=== PATIENT | male | born 1970 | race Caucasian/White ===

== ENCOUNTER 2024-11-04 22:20 | Emergency (ER) | payer MEDICAID, SELFPAY ==
[2024-11-04 22:20] VITALS: BP 194/97; PULSE 80; RESP 18; TEMP 36.6; O2SAT 97; BMI 30.5
--- NOTE | 2024-11-04 22:30 | ED_ITS ---
HPI - Alcohol 2 General: Chief Complaint: Alcohol Stated Complaint: ETOH Time Seen by Provider: 11/04/24 22:25 History of Present Illness: 54-year-old man who presents the emergen cy room by ambulance with a history of schizophrenia who says that he has been drinking all day and he has a ringing in his ears and that his schizophrenia is causing him issues and he needs to be admitted to the [facility]. He continually denies any suicidal or homicidal ideations. He just says that his schizophrenia is hurting him and that he needs to be admitted to be treated Related Data Home Medications ?Medication ?Instructions ?Recorded ?Confirmed omeprazole 20 mg capsule,delayed 20 mg PO DAILY 01/17/21 release sertraline 50 mg tablet (Zoloft) 50 mg PO DAILY 01/17/21 Previous Rx's ?Medication ?Instructions ?Recorded doxycycline hyclate 100 mg tablet 100 mg PO BID 10 day s #20 tabs 01/17/21 Allergies Allergy/AdvReac Type Severity Reaction Status Date / Time Penicillins Allergy rash Verified 11/04/24 22:25 Review of Systems 2 Narrative: Constitutional symptoms: Negative except as documented in HPI. Skin symptoms: Negative except as documented in HPI. Eye symptoms: Negative except as documented in HPI. ENMT symptoms: Negative except as documented in HPI. Respiratory symptoms: Negative except as documented in HPI. Cardiovascular symptoms: Negative except as documented in HPI. Gastrointestinal symptoms: Negative except as documented in HPI. Genitourinary symptoms: Negative except as documented in HPI. Musculoskeletal symptoms: Negative except as documented in HPI. Neurologic symptoms: Negative except as documented in HPI. Psychiatric symptoms: Negative except as documented in HPI. Endocrine symptoms: Negative except as documented in HPI. PFSH ED 2 PFSH: Social History Smoking and tobacco/nicotine status: never used tobacco/nicotine Alcohol intake: never Substance/Drug Use: never Physical Exam 2 Narrative: EXAM NARRATIVE: General: Alert, no acute distress. Skin: Warm, dry. Head: Normocephalic, atraumatic. Neck: Supple, trachea midline. Eye: Extraocular movements are intact. Ears, nose, mouth and throat: mucosa moist. Cardiovascular: Regular, Normal peripheral perfusion. Respiratory: Lungs are clear to auscultation, respirations are non-labored, breath sounds are equal, Symmetrical chest wall expansion. Gastrointestinal: Soft, Nontender, Non distended Musculoskeletal: Normal ROM, no deformity. Neurological: Alert and oriented, No focal neurological deficit observed. Psychiatric: Cooperative, odd affect. Continues to deny suicidal or homicidal ideations. Course 2 Vital Signs: Vital signs: Vital Signs Temperature 97.8 F 11/04/24 22:20 Pulse Rate 75 11/05/24 04:00 Respiratory Rate 16 11/05/24 04:00 Blood Pressure 194/97 11/04/24 22:20 Pulse Oximetry 97 11/05/24 04:00 Oxygen Delivery Me thod Room Air 11/04/24 22:20 MDM - Alcohol Medical Decision Making Lab review: Patient has blood alcohol level of over 300. Repeat is down to 100. Continues to deny any suicidal or homicidal ideation Assessment and plan: Alcohol intoxication Schizophrenia - Discharged home - Discussed plan with patient. Answered any questions. - Evaluation and treatment of this problem were appropriate in the emergency setting. Lab Data 11/04/24 23:07 11/04/24 23:07 Laboratory Results WBC 13.34 10^3/uL (3.29-11.43) H 11/04/24 23:07 RBC 5.52 10^6/uL (3.85-5.65) 11/04/24 23:07 Hgb 16.00 g/dL (11.27-16.99) 11/04/24 23:07 Hct 46.6 % (37-53) 11/04/24 23:07 MCV 84.4 fl (82-101) 11/04/24 23:07 MCH 29.0 pg (27-33) 11/04/24 23:07 MCHC 34.3 g/dL (30-55) 11/04/24 23:07 RDW 13.0 % (12.1-15.1) 11/04/24 23:07 Plt Count 285 10^3/cmm (157-399) 11/04/24 23:07 MPV 9.3 fL (7.4-10.4) 11/04/24 23:07 Neut % (Auto) 49.0 % 11/04/24 23:07 Lymph % (Auto) 41.6 % 11/04/24 23:07 Morrill % (Auto) 6.7 % 11/04/24 23:07 Eos % (Auto) 1.7 % 11/04/24 23:07 Baso % (Auto) 0.6 % 11/04/24 23:07 Neut # (Auto) 6.53 10^3/uL (1.8-7.7) 11/04/24 23:07 Lymph # (Auto) 5.6 10^3/uL (0.8-4.8) H 11/04/24 23:07 Morrill # (Auto) 0.9 10^3/uL (0.2-0.9) 11/04/24 23:07 Eos # (Auto) 0.2 10^3/uL (0.0-0.8) 11/04/24 23:07 Baso # (Auto) 0.1 10^3/uL (0.0-0.1) 11/04/24 23:07 Nucleated RBC % (auto) 0 % 11/04/24 23:07 Nucleated RBCs # 0.0 /100WBC 11/04/24 23:07 Sodium 142 mmol/L (136-145) 11/04/24 23:07 Potassium 4.0 mmol/L (3.5-5.1) 11/04/24 23:07 Chloride 107 mmol/L (98-107) 11/04/24 23:07 Carbon Dioxide 22 mmol/L (22-29) 11/04/24 23:07 Anion Gap 17.0 (5-19) 11/04/24 23:07 BUN 15 mg/dL (6-20) 11/04/24 23:07 Creatinine 1.0 mg/dL (0.7-1.2) 11/04/24 23:07 GFR Calculation 78.2 mL/min (90-130) L 11/04/24 23:07 Glucose 95 mg/dL (65-115) 11/04/24 23:07 Calculated Osmolality 295 mOsm/kg (285-295) 11/04/24 23:07 Calcium 8.7 mg/dL (8.5-10.5) 11/04/24 23:07 Total Bilirubin 0.4 mg/dL (0.15-1.2) 11/04/24 23:07 AST 28 U/L (0-40) 11/04/24 23:07 ALT 21 U/L (0-41) 11/04/24 23:07 Alkaline Phosphatase 73 U/L (40-130) 11/04/24 23:07 Total Protein 8.2 g/dL (6.6-8.7) 11/04/24 23:07 Albumin 4.8 g/dL (3.5-5.2) 11/04/24 23:07 Globulin 3.4 g/dL (1.3-4.6) 11/04/24 23:07 TSH 1.67 uIU/mL (0.27-4.20) 11/04/24 23:07 Salicylates < 0.3 mg/dL (3-10) L 11/04/24 23:07 Acetaminophen < 5.0 ug/mL (10-30) L 11/04/24 23:07 Ethyl Alcohol 108 mg/dL (0-10) H 11/05/24 04:29 No radiology studies performed this visit Discharge Plan Discharge Patient Disposition: Home Clinical Impression: Alcoholic intoxication, Schizophrenia Condition: Stable Prescriptions: No Action sertraline [Zoloft] 50 mg tablet 50 mg PO DAILY omeprazole 20 mg capsule,delayed release(DR/EC) 20 mg PO DAILY doxycycline hyclate 100 mg tablet 100 mg PO BID 10 Days Qty: 20 0RF Discharge Orders: Discharge ED (Routine); Ordered 11/05/24 Ordered By: Yaquelin Carlson Referrals: Reinaldo Hickey MD [Physician] - Patient Instructions: Alcohol Intoxication (ED), Opioid Safety, Pain Management Activity Restrictions/Additional Instructions: Please follow-up with the [facility] behavioral health crisis center tomorrow or the next day. Phone number is [phone]. There is a 24-hour crisis hotline with the number of [phone]. Hours of operation are 8 AM to 6 PM. Thank you for choosing [facility] for your healthcare needs today. Please realize this is an emergency room and that we are providing you with a medical screening exam and this may not be complete and all inclusive of all the testing and or work up that you may need to determine your ailment or severity of your illness. You have been screened and evaluated and felt safe for discharge. Health conditions do change or evolve sometimes and as such it is important that you follow up with your Primary Doctor to be re checked, 3-5 days is a general good time frame for follow up. 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
[2024-11-04] MEDS: ziprasidone 20 mg/mL SDV IM (22:34)
[2024-11-04] MEDS: water for injection-sterile 10 ML (22:43)
--- NOTE | 2024-11-04 23:05 | ECG_ITS ---
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 Measurements Intervals [place] Rate: 86 P: 34 ID: [id number] QRS: -23 QRSD: 110 T: -3 QT: 381 QTc: 458 Interpretive Statements SINUS RHYTHM BORDERLINE LEFT AXIS DEVIATION [QRS AXIS < -20] LOW QRS VOLTAGE IN PRECORDIAL LEADS [QRS DEFLECTION < 1.0 mV IN CHEST LEADS] INCOMPLETE RIGHT BUNDLE BRANCH BLOCK [90+ ms QRS DURATION, TERMINAL R IN V1/V2, 40+ ms S IN I/aVL/V4/V5/V6] NONSPECIFIC T-WAVE ABNORMALITY Compared to ECG 02/23/2016 14:24:41 Low QRS voltage now present T-wave abnormality now present Sinus tachycardia no longer present ST (T wave) deviation no longer present Electronically Signed On 11-06-2024 12:38:25 CDT by Brant Hale M.D. [email or web address]
[2024-11-04 23:54] LABS: Alanine Aminotransferase 21 U/L (0-41); Albumin Level 4.8 g/dL (3.5-5.2); Alkaline Phosphatase 73 U/L (40-130); Aspartate Amino Transferase 28 U/L (0-40); Blood Urea Nitrogen 15 mg/dL (6-20); Calcium 8.7 mg/dL (8.5-10.5); Carbon Dioxide 22 mmol/L (22-29); Chloride 107 mmol/L (98-107); Creatinine Clr Calc Pharmacy 102.6054; Globulin 3.4 g/dL (1.3-4.6); Glomerular Filtration Rate 78.2 mL/min (90-130); Glucose 95 mg/dL (65-115); Osmolality Calculated 295 mOsm/kg (285-295); Sodium 142 mmol/L (136-145); Thyroid Stimulating Hormone 1.67 uIU/mL (0.27-4.20); Total Bilirubin 0.4 mg/dL (0.15-1.2); Total Protein 8.2 g/dL (6.6-8.7)
[2024-11-04 23:55] VITALS: PULSE 79; RESP 15; O2SAT 98
[2024-11-04 23:58] LABS: Acetaminophen < 5.0 ug/mL (10-30); Salicylate < 0.3 mg/dL (3-10)
[2024-11-04 23:59] LABS: Alcohol Level 336 mg/dL (0-10)
[2024-11-05 00:05] LABS: Basophils # 0.1 10^3/uL (0.0-0.1); Basophils % 0.6 %; Eosinophils # 0.2 10^3/uL (0.0-0.8); Eosinophils % 1.7 %; Hematocrit 46.6 % (37-53); Lymphocytes # 5.6 10^3/uL (0.8-4.8); Lymphocytes % 41.6 %; Mean Corpuscular HGB Conc 34.3 g/dL (30-55); Mean Corpuscular Volume 84.4 fl (82-101); Mean Platelet Volume 9.3 fL (7.4-10.4); Monocytes # 0.9 10^3/uL (0.2-0.9); Monocytes % 6.7 %; Neutrophils # 6.53 10^3/uL (1.8-7.7); Nucleated Red Blood Cells % 0 %; Platelet Count 285 10^3/cmm (157-399); Red Blood Count 5.52 10^6/uL (3.85-5.65); White Blood Count 13.34 10^3/uL (3.29-11.43)
[2024-11-05 00:07] LABS: Slide Review Slide Review Perform
[2024-11-05 04:00] VITALS: PULSE 75; RESP 16; O2SAT 97
[2024-11-05 04:51] LABS: Alcohol Level 108 mg/dL (0-10)
== END 2024-11-05 06:05 | disposition home or self-care (01) ==
PROVIDERS: Emergency Provider Emergency Medicine; PCP Nurse Practitioner Family
DX: F20.9 Schizophrenia, unspecified (principal); F10.129 Alcohol abuse with intoxication, unspecified; Y90.5 Blood alcohol level of 100-119 mg/100 ml
CPT/HCPCS: 36415; 80053; 80307; 84443; 85025; 93005; 96372; 99284; J3486